=== PATIENT | female | born 1965 | race Caucasian/White ===

== ENCOUNTER 2019-10-15 08:06 | Emergency (ER) | payer BC, OTHER ==
[~2019-10-15] VITALS: Ht 165.1 cm; Wt 68.0 kg
[~2019-10-15 08:06] MED LIST: BUPR150T2; ERYT.5TO OS; GABA300; MONT10T; RXOXYACE PO; SPIR25
[2019-10-15] MEDS ORDERED: SPIRONOLACTONE50 MG PO (08:25)
[2019-10-15] MEDS ORDERED: GABA100 (08:25)
[2019-10-15] MEDS ORDERED: MELO7.5 PO (08:25)
[2019-10-15] MEDS ORDERED: VIIBRYD20 MG PO (08:26)
[2019-10-15 09:31] LABS: Influenza A Negative (NEGATIVE); Influenza B Negative (NEGATIVE)
[2019-10-15] MEDS ORDERED: Guaifenesin-Co118 ML PO (09:43)
[2019-10-15] MEDS ORDERED: Sudogest60 MG PO (09:43)
[2019-10-15] MEDS ORDERED: BENZ100A PO (09:43)
== END 2019-10-15 10:04 | disposition home or self-care (01) ==
LOC: ER 08:06
PROVIDERS: Physician Assistant
DX: J06.9 Acute upper respiratory infection, unspecified (principal)
CPT/HCPCS: 71045; 87804

== ENCOUNTER → 2020-05-25 | Outpatient (CLI) | payer BC, OTHER ==
[~2020-05-25] MED LIST changes: +BENZ100A PO; +GABA100; +Guaifenesin-Co118 ML PO; +MELO7.5 PO; +SPIRONOLACTONE50 MG PO; +Sudogest60 MG PO; +VIIBRYD20 MG PO
== END | disposition home or self-care (01) ==
LOC: LAB SHORT 14:25 → PLD 14:25
DX: D22.5 Melanocytic nevi of trunk (principal); D22.71 Melanocytic nevi of right lower limb, including hip
CPT/HCPCS: 88305

== ENCOUNTER 2022-02-15 10:46 | Emergency (ER) | payer BC, OTHER ==
[~2022-02-15] VITALS: Ht 165.1 cm; Wt 74.8 kg
[2022-02-15 11:28] LABS: BASOPHILS ABSOLUTE AUTO 0.04 K/mm3 (0.00-0.23); BASOPHILS PERCENT AUTO 1 % (0-2); EOSINOPHILS ABSOLUTE AUTO 0.25 K/mm3 (0.00-0.68); EOSINOPHILS PERCENT AUTO 4 % (0-6); Hematocrit 39.5 % (33.0-51.0); Hemoglobin 13.3 g/dL (11.5-16.0); IMMATURE GRAN ABSOLUTE AUTO 0.03 K/mm3 (0.00-0.10); IMMATURE GRAN PERCENT AUTO 0 % (0-1); LYMPHOCYTES ABSOLUTE AUTO 2.03 K/mm3 (0.84-5.20); LYMPHOCYTES PERCENT AUTO 30 % (21-46); MONOCYTES ABSOLUTE AUTO 0.55 K/mm3 (0.16-1.47); MONOCYTES PERCENT AUTO 8 % (4-13); Mean Corpuscular HGB 30.5 pg (26.0-34.0); Mean Corpuscular HGB Conc 33.7 g/dL (31.5-36.5); Mean Corpuscular Volume 91 fL (80-100); Mean Platelet Volume 9.6 fL (9.1-12.4); NEUTROPHILS ABSOLUTE AUTO 3.93 K/mm3 (1.96-9.15); NEUTROPHILS PERCENT AUTO 58 % (41-73); Platelet Count 244 K/mm3 (150-400); RDW Coefficient Variation 12.4 % (11.7-14.2); Red Blood Cell Count 4.36 M/mm3 (3.80-5.20); White Blood Cell Count 6.83 K/mm3 (4.00-11.30)
[2022-02-15 11:31] LABS: Albumin, Blood 4.1 g/dL (3.4-5.0); Albumin/Globulin Ratio 1.2 (0.8-1.8); Bilirubin, Total 0.5 mg/dL (0.1-1.0); Bun/Creatinine Ratio 25.9 (12.0-20.0); Calcium, Blood 9.8 mg/dL (8.5-10.1); Creatinine, Blood 0.93 mg/dL (0.40-1.00); Globulin, Blood 3.4 g/dL (2.2-4.0); Potassium, Blood 3.8 mmol/L (3.5-5.5); Total Protein, Blood 7.5 g/dL (6.4-8.2)
== END 2022-02-15 13:38 | disposition home or self-care (01) ==
LOC: ER 10:46
PROVIDERS: Student in an Organized Health Care Education/Training Program
DX: R55 Syncope and collapse (principal); Z79.899 Other long term (current) drug therapy
CPT/HCPCS: 80053; 83735; 85025; 93005; 93010; 99284

== ENCOUNTER → 2022-02-16 | Outpatient (CLI) | payer BC, OTHER | END | disposition home or self-care (01) | LOC: LAB 08:40 → LAB SHORT 08:40 | DX: M79.10 Myalgia, unspecified site (principal); M54.50 Low back pain, unspecified; R55 Syncope and collapse; R94.02 Abnormal brain scan; R76.0 Raised antibody titer; R42 Dizziness and giddiness; R29.818 Other symptoms and signs involving the nervous system; R94.09 Abnormal results of other function studies of central nervous system; G93.89 Other specified disorders of brain; R79.89 Other specified abnormal findings of blood chemistry | CPT/HCPCS: 85651 ==